=== PATIENT | male | born 1985 | race Caucasian/White ===

== ENCOUNTER 2019-03-11 14:45 | Emergency (ER) | payer OTHER, SELFPAY ==
--- NOTE | 2019-03-11 15:10 | PC.NURSE ---
Patient notified ED security that he was leaving the ED and no longer wished to be evaluated.
== END 2019-03-11 15:30 | disposition left against medical advice (07) ==
DX: Z53.21 Procedure and treatment not carried out due to patient leaving prior to being seen by health care provider (principal)
CPT/HCPCS: 99199

== ENCOUNTER 2019-03-11 17:10 | Emergency (ER) | payer OTHER, SELFPAY ==
[2019-03-11 17:23] VITALS: BP 134/89; PULSE 108; RESP 18; TEMP 37.2; O2SAT 100
[2019-03-11 18:20] LABS: Add Urine Microscopic? NO; Appearance Urine Clear (Clear); Bilirubin Urine Negative (Negative); Blood Urine Negative (Negative); Color Urine Straw (Yellow); Glucose Urine UA Negative (Negative); Ketones Urine Negative (Negative); Leukocyte Esterase Ur Negative LEU/UL (Negative); Nitrate Urine Negative (Negative); Protein Urine Negative (Negative); Specific Grav Ur 1.006 (1.001-1.035); Urobilinogen Urine Negative mg/dL (<2.0)
[2019-03-11 18:30] LABS: Amphetamine Screen Urine Negative (Negative); Barbiturate Screen Urine Negative (Negative); Benzodiazepines Screen Urine Negative (Negative); Cannabinoid Screen Urine Positive (Negative); Cocaine Screen Urine Negative (Negative); Methadone Screen Urine Negative (Negative); Opiate Screen Urine Positive (Negative); Phencyclidine Screen Urine Negative (Negative)
[2019-03-11 20:41] LABS: Basophils Absolute Auto 0.1 K/mm3 (0.0-0.1); Eosinophils Absolute Auto 0.1 K/mm3 (0-0.3); Eosinophils Percent Auto 1.1 % (0-4.4); Hematocrit 42.7 % (42.0-52.0); Hemoglobin 13.5 g/dL (14.0-18.0); Immature Granulocyte Absolute 0.03 K/mm3 (0.00-0.031); Immature Granulocyte Percent A 0.3 % (0-0.5); Lymphocytes Absolute Auto 3.92 K/mm3 (0.9-3.2); Lymphocytes Percent Auto 35.8 % (18.3-44.2); Mean Corpuscular HGB Conc 31.6 g/dl (32-36); Mean Corpuscular Hemoglobin 24.4 pg (26-34); Mean Corpuscular Volume 77.1 fl (80-100); Mean Platelet Volume 10.1 fl (7.4-10.4); Monocytes Absolute Auto 0.8 K/mm3 (0.1-0.6); Monocytes Percent Auto 7.2 % (2.6-8.5); Neutrophils Percent Auto 54.6 % (45.5-73.1); Platelet Count Result 281 k/mm3 (150-375); Red Blood Count 5.54 M/mm3 (4.6-6.20); Red Cell Distribution Width 16.1 % (11.5-14.5)
--- NOTE | 2019-03-11 20:44 | ED.ABDPAIN ---
HPI - Abdominal Pain General Chief Complaint: Abdominal Pain Stated Complaint: abdominal pain Time Seen by Provider: 03/11/19 20:12 Source: patient and RN notes reviewed Mode of arrival: ambulatory Limitations: no limitations History of Present Illness HPI narrative: Pt is a 34 y/o male with a Hx of gastric ulcers and melena, who presents to the ED with c/o bilateral lower ABD pain starting roughly 1 month ago. He notes that he has a Hx of opiate abuse, which he states may have been the cause of his previous ulcers. Pt notes that he has been sober for the past 2 months. He states that he has had relatively constant bilateral lower ABD pain and nausea for the past month. Pt notes that he hasn't eaten much recently due to his symptoms. He also reports blurry vision, muffled hearing, headache, and increasing generalized weakness over the past several days. Pt denies any diarrhea, constipation, dark stools, urinary symptoms, fever, chills, or otalgia. He notes that he has tried using marijuana in order to eat more, but states that his appetite hasn't changed. MD elicited complaint: abdominal pain Pertinent past history: gastrointestinal bleeding and other (ulcers) Onset (ago): month(s) (1) Pain Consistency: constant Location: other (bilateral lower ABD) Associated symptoms: nausea and other (blurry vision; muffled hearing; generalized weakness; headache; decreased intake) Related Data Home Medications Medication Instructions Recorded Confirmed lorazepam [Ativan] 1 mg PO DAILY PRN 03/11/19 Allergies Allergy/AdvReac Type Severity Reaction Status Date / Time No Known Allergies Allergy Unknown Verified 02/16/19 12:52 Review of Systems Review of Systems: All systems reviewed & are unremarkable except as noted in HPI and below Constitutional: Constitutional: Denies chills, Denies fever(s), Reports headache(s), Reports weakness (generalized) and Reports other (decreased intake) Eyes: Eyes: Reports blurry vision ENT: Denies otalgia and Reports other (muffled hearing) Gastrointestinal: Gastrointestinal: Reports abdominal pain (bilateral lower ABD pain), Denies melena, Denies constipation, Denies diarrhea and Reports nausea PMFSH Past Medical History Medical History Anemia Anxiety Depression Gastric ulcer Hepatitis C Melena Pneumonia Previous known suicide attempt SVT (supraventricular tachycardia) Surgical History Surgical History History of cardiac radiofrequency ablation Social History Social History Alcohol intake: current Substance use type: opiates and methamphetamine Gender identity (if verbalized by the patient): Male Exam Const: General: healthy appearing, no acute distress and alert Nutritional Appearance: well nourished Orientation/consciousness: patient oriented x3 HENMT: Other: diffuse tooth decay Eyes: Pupils: Equal, round and reactive pupils present EOM: EOMs intact bilaterally Neck: Neck: normal visual inspection Resp: Effort & Inspection: normal respiratory effort Auscultation: clear to auscultation bilaterally Cardio: Rate: regular rate Rhythm: regular rhythm GI: GI Palp: Yes Soft to palpation and Yes Tenderness to palpation present (GI) (bilateral flank tenderness) Skin: General skin exam: normal color Rashes: no rashes Neuro: General: patient oriented x3 and moves all extremities Speech: normal speech Extrem: General: normal to inspection Course Vital Signs Vital signs: Vital Signs Temperature 37.2 C 03/11/19 17:23 Pulse Rate 108 H 03/11/19 17:23 Respiratory Rate 18 03/11/19 17:23 Blood Pressure 134/89 03/11/19 17:23 Pulse Oximetry 100 03/11/19 17:23 Temperature 37.2 C 03/11/19 17:23 Pulse Rate 108 H 03/11/19 17:23 Respiratory Rate 18 03/11/19 17:23 Blood Pressure 134/89 03/11/19 17:23 Pulse
[2019-03-11 20:53] LABS: Alanine Aminotransferase 56 U/L (4-50); Albumin Level 4.4 g/dL (3.5-5.1); Alkaline Phosphatase 49 U/L (38-126); Aspartate Amino Transferase 40 U/L (17-59); Bilirubin,Total 0.9 mg/dL (0.2-1.3); Blood Urea Nitrogen 16 mg/dL (9-20); Calcium 9.1 mg/dL (8.4-10.2); Carbon Dioxide 26 mmol/L (22-30); Chloride 102 mmol/L (98-107); Estimated CRCL calculation 100 ml/min; Estimated Glomerular Filt Rate > 60; Glucose 81 mg/dL (75-110); Lipase 402 U/L (23-300); Potassium 3.8 mmol/L (3.4-5.0); Sodium 139 mmol/L (137-145)
== END 2019-03-11 23:12 | disposition home or self-care (01) ==
PROVIDERS: Emergency Medicine; Emergency Provider Emergency Medicine
DX: R10.84 Generalized abdominal pain (principal); F41.9 Anxiety disorder, unspecified; F32.9 Major depressive disorder, single episode, unspecified
CPT/HCPCS: 36415; 80053; 80307; 81003; 83690; 85025; 99283; A9270

== ENCOUNTER 2019-10-17 06:19 | Emergency (ER) | payer OTHER, SELFPAY ==
[2019-10-17 06:22] VITALS: BP 147/98; PULSE 88; RESP 18; TEMP 36.4; O2SAT 100
--- NOTE | 2019-10-17 07:05 | ED.WOUNDLAC ---
HPI - Wound/Laceration General Chief Complaint: Wound/Laceration Stated Complaint: left eye lacteration Time Seen by Provider: 10/17/19 07:05 Source: patient Mode of arrival: ambulatory Limitations: no limitations History of Present Illness HPI narrative: Patient is a 34-year-old male that presents for evaluation of left eyebrow laceration. Patient states he was at work at the [employer] this morning when he accidentally hit his head on a conveyor belt causing a laceration to the upper part of his left eyebrow. Patient reports mild active bleeding. No severe pain. No loss of consciousness. He denies any neck pain. No trauma to the chest or abdomen. Patient is up-to-date on her tetanus. Patient denies any headache or vision changes. Related Data Home Medications Medication Instructions Recorded Confirmed lorazepam [Ativan] 1 mg PO DAILY PRN 03/11/19 Allergies Allergy/AdvReac Type Severity Reaction Status Date / Time No Known Allergies Allergy Unknown Verified 10/17/19 07:22 Review of Systems Review of Systems: Narrative: CONSTITUTIONAL: Denies fever CARDIOVASCULAR: Denies chest pain RESPIRATORY: Denies cough or dyspnea. GASTROINTESTINAL: Denies abdominal pain SKIN: Denies rash MUSCULOSKELETAL: Denies back pain NEUROLOGIC: Denies headache PMFSH Past Medical History Medical History Anemia Anxiety Depression Gastric ulcer Hepatitis C Melena Pneumonia Previous known suicide attempt SVT (supraventricular tachycardia) Surgical History Surgical History History of cardiac radiofrequency ablation Social History Social History Alcohol intake: current Substance use type: opiates and methamphetamine Gender identity (if verbalized by the patient): Male Exam Narrative: Exam Narrative: GENERAL: Awake, alert, conversant HEAD: Normocephalic, atraumatic. EYES: PERRLA and EOMI. 1.5 cm laceration to the left eyelid, superficial. ENT: Nares clear, no rhinorrhea or epistaxis. Mucous membranes moist. NECK: Supple. CHEST: No respiratory distress, breathing even and non labored HEART: Regular rate, sinus rhythm ABDOMEN:Non distended, non tender EXTREMITIES: Normal range of motion. No edema. SKIN: Warm, dry, no rash. NEURO:No focal deficits. Alert and oriented x3 Course Vital Signs Vital signs: Vital Signs Temperature 36.4 C L 10/17/19 06:22 Pulse Rate 88 10/17/19 06:22 Respiratory Rate 18 10/17/19 06:22 Blood Pressure 147/98 H 10/17/19 06:22 Pulse Oximetry 100 10/17/19 06:22 Temperature 36.4 C L 10/17/19 06:22 Pulse Rate 88 10/17/19 06:22 Respiratory Rate 18 10/17/19 06:22 Blood Pressure 147/98 H 10/17/19 06:22 Pulse Oximetry 100 10/17/19 06:22 Procedures Laceration Laceration 1: Date: 10/17/19 Time: 07:45 Site: face Side (If applicable): left Size (cm): 1.5 Description: linear Depth: simple, single layer Local Anesthetic: lidocaine 1% Amount of anesthesia used (mL): 2 Pre-repair: wound explored and irrigated ====== Skin Level ====== Skin layer closed with: prolene Size (cm): 6-0 Number of sutures: 2 Technique: simple, interrupted ====== Subcutaneous Layer ====== ====== Muscle Layer ====== ====== Tendon Layer ====== MDM - Wound/Laceration MDM Narrative Medical decision making narrative: Patient with left eyebrow superficial laceration which was irrigated and repaired. No other deficits. Patient is up-to-date on his tetanus. No loss of consciousness or sign of severe head trauma. No concussion type symptoms on exam. Advised patient could continue Tylenol for headache pain if he were to develop any. Given wound care instructions. Patient then discharged home. Differential
== END 2019-10-17 08:11 | disposition home or self-care (01) ==
PROVIDERS: Emergency Provider Emergency Medicine
DX: S01.112A Laceration without foreign body of left eyelid and periocular area, initial encounter (principal); F41.9 Anxiety disorder, unspecified; F32.9 Major depressive disorder, single episode, unspecified; Z86.19 Personal history of other infectious and parasitic diseases; W22.8XXA Striking against or struck by other objects, initial encounter
CPT/HCPCS: 12011; 99282

== ENCOUNTER 2019-12-19 17:03 | Emergency (ER) | payer OTHER, SELFPAY ==
--- NOTE | 2019-12-19 17:31 | PC.NURSE ---
pt again informed that visitor had to wait outside. pt states to take him out of the list to be seen states will walk home with his gf.
== END 2019-12-19 17:31 | disposition left against medical advice (07) ==
LOC: ANHED 17:43
PROVIDERS: PCP Family Medicine
DX: Z53.21 Procedure and treatment not carried out due to patient leaving prior to being seen by health care provider (principal)
CPT/HCPCS: 99199

== ENCOUNTER 2019-12-19 18:32 | Emergency (ER) | payer OTHER, SELFPAY ==
[2019-12-19 18:44] VITALS: BP 126/77; PULSE 96; RESP 16; TEMP 37.2; O2SAT 99
--- NOTE | 2019-12-19 18:53 | ED.WOUNDLAC ---
HPI - Wound/Laceration General Chief Complaint: Wound/Laceration Stated Complaint: laceration left arm Source: patient and RN notes reviewed Mode of arrival: ambulatory Limitations: no limitations History of Present Illness HPI narrative: This is a 34-year-old white male that presented to our urgent care today with a 7 mm laceration. The patient he was rehabbing his new home in him his brother was doing pull-ups and while doing pull-ups he injured his left arm on an object. Patient is up-to-date with his tetanus. The patient denies SOB, CP, palpitation, extremity numbness, lightheadedness, dizziness, constipation, diarrhea, chills, or fever. Has full range of motion with the affected extremity to that extremity, no tendons or ligaments or muscles noted. Related Data Home Medications Medication Instructions Recorded Confirmed diclofenac sodium 75 mg PO DAILY 12/19/19 12/19/19 Allergies Allergy/AdvReac Type Severity Reaction Status Date / Time No Known Allergies Allergy Unknown Verified 10/17/19 07:22 Review of Systems Review of Systems: All systems reviewed & are unremarkable except as noted in HPI and below (10 system review) [facility] Past Medical History Medical History (Updated 12/19/19 @ 18:53 by SHAHNAZ FlowerC) Anemia Anxiety Depression Gastric ulcer Hepatitis C Melena Pneumonia Previous known suicide attempt SVT (supraventricular tachycardia) Surgical History Surgical History History of cardiac radiofrequency ablation Social History Social History Alcohol intake: current Substance use type: opiates and methamphetamine Gender identity (if verbalized by the patient): Male Course Vital Signs Vital signs: Vital Signs Temperature 99.0 F 12/19/19 18:44 Pulse Rate 96 12/19/19 18:44 Respiratory Rate 16 12/19/19 18:44 Blood Pressure 126/77 12/19/19 18:44 Pulse Oximetry 99 12/19/19 18:44 Temperature 99.0 F 12/19/19 18:44 Pulse Rate 96 12/19/19 18:44 Respiratory Rate 16 12/19/19 18:44 Blood Pressure 126/77 12/19/19 18:44 Pulse Oximetry 99 12/19/19 18:44 Discharge Plan Discharge Clinical Impression: Laceration Patient Disposition: Home, Self-Care Condition: Stable Instructions: Antibiotic Form Additional Instructions: -Keep the dressing clean and dry for 1-2days; then you may gently clean with soap and water whenever you take a shower; however no continuous water contact like dishes or swimming. Getting them too wet can slow down healing and raise your chance of getting an infection. After you wash your stitches or michael, pat them dry and put an antibiotic ointment on them. -watch for signs of infection including: redness or swelling around the cut, or pus drains from the cut. It is normal for clear yellow fluid to drain from the cut in the first few days. -follow up with PCP for suture/staple in removal 10 days Skin adhesive care: -adhesive works like a bandage; do not use antibiotic onitment as it can break down the adhesive -You can shower while the adhesive is on your skin, but do not take a bath or soak or scrub the area for 7-10 days. Dry your skin by patting it gently with a towel. -The adhesive will peel off on its own; usually by 5-10days. If after 10 days, you still have adhesive on you, you can use antibiotic ointment or petroleum jelly to get it off. After you heal, you should protect the scar from the sun. Use sunscreen on the area or wear clothes or a hat that covers the scar. Follow up with your PCP is needed Prescriptions: No Action diclofenac sodium 75 mg tablet,delayed release (DR/EC) 75 mg PO DAILY RF: 0 Follow-up/Referrals: Louie Bah MD [Primary Care Provider] -
== END 2019-12-19 19:44 | disposition home or self-care (01) ==
PROVIDERS: Emergency Provider Nurse Practitioner; PCP Family Medicine
DX: S51.812A Laceration without foreign body of left forearm, initial encounter (principal); X58.XXXA Exposure to other specified factors, initial encounter
CPT/HCPCS: 12004; 99212; G0463

== ENCOUNTER 2021-03-08 12:17 | Outpatient (CLI) | payer OTHER, SELFPAY ==
[2021-03-08 13:07] LABS: Basophils Absolute Auto 0.1 K/mm3 (0.0-0.1); Basophils Percent Auto 1.3 % (0.2-1.2); Eosinophils Absolute Auto 0.2 K/mm3 (0-0.3); Eosinophils Percent Auto 2.7 % (0-4.4); Hematocrit 46.2 % (42.0-52.0); Hemoglobin 14.7 g/dL (14.0-18.0); Immature Granulocyte Absolute 0.02 K/mm3 (0.00-0.031); Immature Granulocyte Percent A 0.3 % (0-0.5); Lymphocytes Absolute Auto 2.15 K/mm3 (0.9-3.2); Lymphocytes Percent Auto 30.4 % (18.3-44.2); Mean Corpuscular HGB Conc 31.8 g/dl (32-36); Mean Corpuscular Hemoglobin 25.4 pg (26-34); Mean Corpuscular Volume 79.9 fl (80-100); Mean Platelet Volume 9.8 fl (7.4-10.4); Monocytes Absolute Auto 0.8 K/mm3 (0.1-0.6); Monocytes Percent Auto 11.7 % (2.6-8.5); Neutrophils Absolute Auto 3.8 K/mm3 (1.3-6.7); Neutrophils Percent Auto 53.6 % (45.5-73.1); Platelet Count Result 244 k/mm3 (150-375); Red Blood Count 5.78 M/mm3 (4.6-6.20); White Blood Count 7.1 K/mm3 (4.5-10.0)
[2021-03-08 13:20] LABS: Alanine Aminotransferase 78 U/L (4-50); Alkaline Phosphatase 43 U/L (38-126); Anion Gap 6 mmol/L (8-16); Aspartate Amino Transferase 43 U/L (17-59); Bilirubin,Total 0.6 mg/dL (0.2-1.3); Blood Urea Nitrogen 19 mg/dL (9-20); CRP < 0.5 mg/dL (<1.0); Calcium 9.7 mg/dL (8.4-10.2); Carbon Dioxide 23 mmol/L (22-30); Chloride 108 mmol/L (98-107); Cholesterol 194 mg/dL (0-200); Estimated Glomerular Filt Rate > 60; Glucose 99 mg/dL (65-110); HDL Direct 90 mg/dL; Lipase 223 U/L (23-300); Potassium 4.6 mmol/L (3.4-5.0); Sodium 137 mmol/L (137-145); Triglycerides 41 mg/dL (<150)
[2021-03-08 13:30] LABS: LDL Cholesterol Direct 67 mg/dL
[2021-03-08 13:52] LABS: Hepatitis B Surface Antigen Negative (Negative)
[2021-03-08 14:14] LABS: Hepatitis C Virus Antibody Reactive (Negative)
== END 2021-03-08 12:18 | disposition home or self-care (01) ==
PROVIDERS: PCP Internal Medicine; Visit Provider Internal Medicine
DX: R10.9 Unspecified abdominal pain (principal); F11.99 Opioid use, unspecified with unspecified opioid-induced disorder
CPT/HCPCS: 36415; 80053; 80061; 83690; 85025; 86140; 86803; 87340; 87522

== ENCOUNTER 2021-03-12 10:03 | Outpatient (CLI) | payer OTHER, SELFPAY ==
--- NOTE | ~2021-03-12 | US_ITS ---
EXAMINATION: US right upper quadrant DATE: 03/12/2021 10:27 INDICATION: Right abdominal pain. TECHNIQUE: Multiple grayscale and Doppler ultrasound images of the abdomen were obtained. COMPARISON: CT abdomen and pelvis 10/28/2015 FINDINGS: The pancreas is obscured by bowel gas. The liver is normal without focal lesion. There is n ormal flow in main portal vein. The gallbladder is normal in size. No gallstones or gallbladder wall thickening. There was no sonographic Small sign. The common duct is normal and measures 3 mm. IMPRESSION: 1. Normal right upper quadrant ultrasound. Reviewed, dictated and finalized at location E. APPLICATION DEVELOPER
== END 2021-03-12 10:04 | disposition home or self-care (01) ==
PROVIDERS: PCP Internal Medicine; Visit Provider Internal Medicine
DX: R10.11 Right upper quadrant pain (principal)
CPT/HCPCS: 76705

== ENCOUNTER 2021-03-13 15:52 | Emergency (ER) | payer OTHER, SELFPAY ==
--- NOTE | ~2021-03-13 | US_ITS ---
EXAMINATION: US scrotum doppler EXAM DATE: 03/13/2021 17:20 INDICATION: Left testicular pain. TECHNIQUE: Multiple grayscale and Doppler images of the testicles and scrotum were obtained bilateral ly. There is no prior study for comparison. FINDINGS: Right testicle measures 4.7 x 2.3 x 3.4 cm and is morphologically normal. Low resistance Doppler kari w confirmed. The epididymis is unremarkable. Small to moderate-sized varicocele. Left testicle measures 4.5 x 2.7 x 3.3 cm and is morphologically normal. Low resistance Doppler flow confirmed. The epididymis is unremarkable. Small to moderate-sized varicocele. IMPRESSION: 1. Small to moderate-sized bilateral varicoceles. 2. No torsion. Reviewed, dictated and finalized at location G. OT HARVESTER
[2021-03-13 16:12] VITALS: BP 168/89; PULSE 110; RESP 18; TEMP 36.8; O2SAT 100
[2021-03-13 16:53] LABS: Add Urine Microscopic? NO; Appearance Urine Clear (Clear); Bilirubin Urine Negative (Negative); Blood Urine Negative (Negative); Color Urine Colorless (Yellow); Glucose Urine UA Negative (Negative); Ketones Urine Negative (Negative); Leukocyte Esterase Ur Negative LEU/UL (Negative); Nitrate Urine Negative (Negative); Protein Urine Negative (Negative); Urobilinogen Urine Negative mg/dL (<2.0)
[2021-03-13 16:54] LABS: Specific Grav Ur 1.003 (1.001-1.035)
--- NOTE | 2021-03-13 17:57 | ED.MALEGU ---
HPI - Male Genitourinary General Chief complaint: Urogenital-Male Stated complaint: testicular pain Time Seen by Provider: 03/13/21 16:19 Source: patient History of Present Illness HPI Narrative: Patient presents with left testicular pain. Patient ports he had pain for approximately 1 week. His pain was initially intermittent however today it became more severe and associated with nausea he was concerned so he came to the ER for evaluation he denies any trauma to the area the pain is achy, constant, radiates up into his abdomen. Denies any urinary symptoms denies any urethral discharge. Related Data Home Medications Medication Instructions Recorded Confirmed naltrexone microspheres [Vivitrol] 380 mg IM ONCE 03/13/21 03/13/21 Allergies Allergy/AdvReac Type Severity Reaction Status Date / Time No Known Allergies Allergy Unknown Verified 03/13/21 16:10 Review of Systems Review of Systems: CONSTITUTIONAL: Denies fever, chills, or sweats. EYES: Denies visual changes, redness, or discharge. ENT: Denies rhinorrhea, congestion, sore throat, or otalgia. CARDIOVASCULAR: Denies chest pain, palpitations, or edema. RESPIRATORY: Denies cough or dyspnea. GASTROINTESTINAL: Denies nausea, vomiting, or diarrhea. GENITOURINARY: Denies dysuria or hematuria. SKIN: Denies rash or itching. MUSCULOSKELETAL: Denies back pain, joint pain, or myalgia. NEUROLOGIC: Denies headache, numbness, dizziness, or weakness. PSYCHIATRIC: Denies anxiety or depression. All systems reviewed & are unremarkable except as noted in HPI and below PMFSH Past Medical History Medical History (Updated 03/13/21 @ 18:03 by Delbert Rucker MD) Anemia Anxiety Depression Gastric ulcer Hepatitis C Melena Pneumonia Previous known suicide attempt SVT (supraventricular tachycardia) Surgical History Surgical History History of cardiac radiofrequency ablation Social History Social History Alcohol intake: current Substance use type: opiates and methamphetamine Gender identity (if verbalized by the patient): Male Exam Narrative: GENERAL: Well-appearing, well-nourished, and in no acute distress. HEAD: Normocephalic, atraumatic. EYES: PERRLA and EOMI. ENT: Nares clear, no rhinorrhea or epistaxis. Mucous membranes moist. NECK: Supple. No masses. No JVD ABDOMEN: Soft, nontender, nondistended, normal active bowel sounds. : Patient with tenderness to palpation along the spermatic cord and epididymis there is normal lie of the testicle there is no edema or swelling cremasteric is intact. There is no urethral discharge there is no ulcerations or rashes. EXTREMITIES: Normal range of motion. No edema. SKIN: Warm, dry, no rash. NEURO: No focal deficits. Alert and oriented x3. PSYCH: Normal mood and affect. Course Reevaluation(s) Reevaluation #1: Patient is resting comfortably results and plan reviewed with patient. Patient is comfortable with the outpatient plan. Date: 03/13/21 Time: 18:00 Vital Signs Vital signs: Vital Signs Temperature 36.8 C 03/13/21 16:12 Pulse Rate 110 H 03/13/21 16:12 Respiratory Rate 18 03/13/21 16:12 Blood Pressure 168/89 H 03/13/21 16:12 Pulse Oximetry 100 03/13/21 16:12 Temperature 36.8 C 03/13/21 16:12 Pulse Rate 84 03/13/21 18:08 Respiratory Rate 16 03/13/21 18:08 Blood Pressure 136/84 03/13/21 18:08 Pulse Oximetry 98 03/13/21 18:08 MDM - Male Genitourinary MDM Narrative Medical decision making narrative: H&P as above, vss, pt looks clinically well, exam with testicular pain, labs unremarkable, img with varicocele, additional labs/img considered, symptomatic relief available as needed, however patient declined supportive therapies while he was in the ER. On reevaluation pt continues to looks clinically well. Suspect varicocele is causing patient's pain, dns torsion, orchitis, ep
[2021-03-13 18:08] VITALS: BP 136/84; PULSE 84; RESP 16; O2SAT 98
== END 2021-03-13 18:10 | disposition home or self-care (01) ==
PROVIDERS: Emergency Provider Emergency Medicine; PCP Internal Medicine
DX: I86.1 Scrotal varices (principal); Z86.2 Personal history of diseases of the blood and blood-forming organs and certain disorders involving the immune mechanism; Z87.01 Personal history of pneumonia (recurrent); Z86.19 Personal history of other infectious and parasitic diseases
CPT/HCPCS: 76870; 81003; 87491; 87591; 93976; 99284

== ENCOUNTER 2021-08-10 02:09 | Day surgery (SDC) | payer OTHER, SELFPAY ==
[2021-08-10 11:57] VITALS: BP 114/74; PULSE 76; RESP 16; TEMP 36.5; O2SAT 100; BMI 30.3
[2021-08-10] MEDS: LACTATED RINGERS 1,000 ML 150 ML IV CONT (12:16)
--- NOTE | 2021-08-10 12:36 | P.PNAN_ITS ---
Anes - Initial Pre Proc Eval Procedure: Operation Date: 08/10/21 12:30 Proposed Procedures p Esophagogastroduodenoscopy - Paulino Henry MD Date/Time: 08/10/21 12:36 Surgeon: Paulino Henry MD Pre Op Diagnosis: epigastric pain Patient Data Age: 36 Gender: M Height: 1.78 m Weight: 95.8 kg Last Vital Signs Temp 97.7 F 08/10/21 11:57 Pulse 76 08/10/21 11:57 Resp 16 08/10/21 11:57 BP 114/74 08/10/21 11:57 Pulse Ox 100 08/10/21 11:57 O2 Del Method Room Air 08/10/21 11:57 Allergies Allergy/AdvReac Type Severity Reaction Status Date / Time No Known Allergies Allergy Unknown Verified 08/10/21 11:56 Home Medications Medication Instructions Recorded Confirmed Type naltrexone microspheres 380 mg 380 mg IM ONCE 03/13/21 08/10/21 History intramuscular suspension,extended release (Vivitrol) Patient hx anesthesia problems: none Family hx anesthesia problems: none Results Review: All pre-operative results and documents have been reviewed as part of the pre- operative evaluation. PENDING SALE TO [facility] Past Medical History Medical History (Updated 06/03/21 @ 10:09 by Paulino Henry MD) Anemia Anxiety Depression Epigastric pain Gastric ulcer Hepatitis C History of heroin abuse Melena Pneumonia Previous known suicide attempt SVT (supraventricular tachycardia) Surgical History Surgical History History of cardiac radiofrequency ablation Social History Social History (Updated 06/03/21 @ 09:37 by Sally Leung CMA) Smoking status: Never smoker Alcohol intake: current Drinks per week: 18 Alcohol use details: BEERS Substance use: former Substance use type: marijuana and heroin Other substance usage details: MARIJUANA DAILY Last use: 1yr since opiates and methamphetamine Gender identity (if verbalized by the patient): Male Spiritual care concerns: No Anes - Eval Final PreProcedure Day of Procedure 08/10/21 12:36 Patient weight: obese Heart: regular rate and rhythm Lungs: clear to auscultation Airway: Mallampati scale class II Neurological: alert and oriented Last oral intake: >/= 8 hours ASA classification: III Emergent: no Anesthetic plan: proceed Anesthesia type and monitoring: general GIVS and standard monitoring Results Review: All pre-operative results and documents have been reviewed as part of the pre- operative evaluation. Informed Consent: The patient's anesthetic plan and its attendant risks and benefits were discussed with the patient/family/POA. Questions were solicited and answers p rovided to the satisfaction of the patient/family/POA.
--- NOTE | 2021-08-10 13:12 | PM.HPGS ---
History of Present Illness History of Present Illness Consent: Risks, benefits, and alternatives have been discussed and questions answered. Patient agrees to proceed with procedure. Chief complaint: epigastric pain Narrative: Perry Navas is a 36 year old male here for EGD. He is former heroin addict on maintenance vivitrol, denies alcohol use. Earlier this year diagnosed with HCV, never had liver issues, had alt elevated. Normal platelets and liver ultrasound. He also had ugib in 2017, required blood transfusion and was told that had ulcer, he did not have follow-up EGD Review of Systems Constitutional: Constitutional: Denies headache(s) and Denies weakness Eyes: Eyes: Denies blurry vision ENT: Reports Normal hearing present, Denies headache(s) and Denies neck pain Cardiovascular: Cardiovascular: Denies chest pain and Denies dyspnea Respiratory: Respiratory: Denies dyspnea Gastrointestinal: Gastrointestinal: Reports no additional gastrointestinal complaints Genitourinary: Genitourinary: Denies dysuria Musculoskeletal: Musculoskeletal: Denies neck pain Integumentary/Breasts: Skin/Breast: Denies dry skin Neurologic: Reports Normal hearing present, Denies headache(s) and Denies weakness Psychiatric: Psychiatric: Denies anxiety Endocrine: Endocrine: Denies change in body appearance Hematologic/Lymphatic: Hematologic/Lymphatic: Denies easy bleeding Allergic/Immunologic: Allergic/Immunologic: Denies urticaria PMFSH Past Medical History Medical History (Updated 06/03/21 @ 10:09 by Paulino Henry MD) Anemia Anxiety Depression Epigastric pain Gastric ulcer Hepatitis C History of heroin abuse Melena Pneumonia Previous known suicide attempt SVT (supraventricular tachycardia) Surgical History Surgical History History of cardiac radiofrequency ablation Social History Social History (Updated 06/03/21 @ 09:37 by Sally Leung CMA) Smoking status: Never smoker Alcohol intake: current Drinks per week: 18 Alcohol use details: BEERS Substance use: former Substance use type: marijuana and heroin Other substance usage details: MARIJUANA DAILY Last use: 1yr since opiates and methamphetamine Gender identity (if verbalized by the patient): Male Spiritual care concerns: No Meds Home Medications and Allergies Home Medications Medication Instructions Recorded Confirmed Type naltrexone microspheres 380 mg 380 mg IM ONCE 03/13/21 08/10/21 History intramuscular suspension,extended release (Vivitrol) Allergies Allergy/AdvReac Type Severity Reaction Status Date / Time No Known Allergies Allergy Unknown Verified 08/10/21 11:56 Vital Signs Vital Signs - 24 hr 08/10/21 11:57 Temperature 97.7 F Pulse Rate 76 Respiratory Rate 16 Blood Pressure 114/74 Pulse Oximetry 100 Oxygen Delivery Room Air Exam Const: General: comfortable and no acute distress HENMT: General nose exam: Normal nares present Eyes: General: appearance normal, both eyes and all related structures Neck: Neck: no JVD Resp: Auscultation: clear to auscultation bilaterally Cardio: Rate: regular rate Rhythm: regular rhythm GI: Inspection: non-distended GI Palp: Yes Soft to palpation Skin: General skin exam: normal color Neuro: General: gait normal Speech: normal speech Extrem: General: normal to inspection Psych: Mental Status: mental status grossly normal Assessment and Plan Assessment and plan (1) Epigastric pain: Code(s): R10.13 - Epigastric pain Status: Acute Assessment and Plan: egd with bx (2) Hepatitis C: Code(s): B19.20 - Unspecified viral hepatitis C without hepatic coma Status: Acute Assessment and Plan: he just completed blood work (still pending) and will follow-up in office to discuss options of treatment for HCV
[2021-08-10 13:25] VITALS: BP 103/69; PULSE 79; RESP 21; O2SAT 97
[2021-08-10 13:35] VITALS: BP 109/65; PULSE 69; RESP 22; O2SAT 98
[2021-08-10 13:45] VITALS: BP 110/73; PULSE 66; RESP 16; O2SAT 99
== END 2021-08-10 13:55 | disposition home or self-care (01) ==
PROVIDERS: PCP Internal Medicine; Visit Provider Internal Medicine Gastroenterology
PROC: 0DJ08ZZ Inspection of Upper Intestinal Tract, Via Natural or Artificial Opening Endoscopic (ICD-10-PCS; CPT 43235; principal; 2021-08-10 12:30)
DX: R10.13 Epigastric pain (principal); K29.80 Duodenitis without bleeding; K29.50 Unspecified chronic gastritis without bleeding; R41.9 Unspecified symptoms and signs involving cognitive functions and awareness; D64.9 Anemia, unspecified; F32.A Depression, unspecified; B19.20 Unspecified viral hepatitis C without hepatic coma; I47.1 Supraventricular tachycardia; K92.1 Melena; F12.90 Cannabis use, unspecified, uncomplicated; E66.9 Obesity, unspecified; Z68.30 Body mass index [BMI] 30.0-30.9, adult
CPT/HCPCS: 43239; 36415; 80053; 81596; 85027; 85610; 86704; 86706; 87340; 87522; 88305; J2704; J7120

== ENCOUNTER 2021-08-10 11:31 | Outpatient (CLI) | payer OTHER, SELFPAY ==
[2021-08-10 12:30] LABS: Hematocrit 46.4 % (42.0-52.0); Hemoglobin 14.7 g/dL (14.0-18.0); Mean Corpuscular HGB Conc 31.7 g/dl (32-36); Mean Corpuscular Hemoglobin 25.3 pg (26-34); Mean Corpuscular Volume 79.9 fl (80-100); Mean Platelet Volume 9.8 fl (7.4-10.4); Platelet Count Result 246 k/mm3 (150-375); Red Blood Count 5.81 M/mm3 (4.6-6.20); Red Cell Distribution Width 15.7 % (11.5-14.5); White Blood Count 8.6 K/mm3 (4.5-10.0)
[2021-08-10 12:31] LABS: Alanine Aminotransferase 157 U/L (6-50); Albumin Level 4.5 g/dL (3.5-5.1); Alkaline Phosphatase 47 U/L (38-126); Anion Gap 5 mmol/L (8-16); Aspartate Amino Transferase 74 U/L (17-59); Bilirubin,Total 0.7 mg/dL (0.2-1.3); Blood Urea Nitrogen 22 mg/dL (9-20); Calcium 8.7 mg/dL (8.4-10.2); Carbon Dioxide 26 mmol/L (22-30); Chloride 106 mmol/L (98-107); Estimated Glomerular Filt Rate > 60; Glucose 91 mg/dL (65-110); INR 0.9; Potassium 4.4 mmol/L (3.4-5.0); Prothrombin Time 12.1 Seconds (11.1-14.7); Sodium 137 mmol/L (137-145)
[2021-08-10 13:12] LABS: Hepatitis B Surface Antigen Negative (Negative)
[2021-08-10 13:30] LABS: Hepatitis B Surface Anti Res Positive
[2021-08-13 07:05] LABS: Hepatitis B Core Ab Total Nonreactive (Nonreactive)
[2021-08-13 17:27] LABS: ALT 117 U/L (9-46); Alpha-2-Macroglobulin 155 mg/dL (106-279); Apolipoprotein A1 193 mg/dL (94-176); Fibrosis Stage F0; GGT 49 U/L (3-90); Haptoglobin 108 mg/dL (43-212); Necroinflammat Act Grade A2; Total Bilirubin 0.7 mg/dL (0.2-1.2)
[2021-08-15 13:00] LABS: HCV Genotype, LiPA 3
== END 2021-08-10 11:32 | disposition home or self-care (01) ==
PROVIDERS: PCP Internal Medicine; Visit Provider Internal Medicine Gastroenterology
DX: B19.20 Unspecified viral hepatitis C without hepatic coma (principal)
CPT/HCPCS: 36415; 80053; 81596; 85027; 85610; 86704; 86706; 87340; 87522

== ENCOUNTER 2022-03-21 11:44 | Emergency (ER) | payer OTHER, SELFPAY ==
--- NOTE | ~2022-03-21 | XR_ITS ---
Clinical Indication: Shortness of breath PA and lateral views of the chest: Comparison: 05/26/2018 Findings: The lungs are clear, without evidence of focal consolidation or pleural effusion. Cardiome diastinal silhouette is within normal limits. Bones and soft tissues are unremarkable. Impression: Normal chest. Reviewed, dictated and finalized at [facility]. ELLER INSPECTOR Impression: Normal chest.
[2022-03-21 11:54] VITALS: BP 137/86; PULSE 102; RESP 16; TEMP 37.1; O2SAT 99
[2022-03-21 11:56] VITALS: BP 137/86; PULSE 102; RESP 16; TEMP 37.1; O2SAT 99
--- NOTE | 2022-03-21 11:59 | ECG_ITS ---
Measurements Intervals [place] Rate: 95 P: 52 [place]: 131 QRS: 17 QRSD: 92 T: -4 QT: 342 QTc: 430 Interpretive Statements SINUS RHYTHM POSSIBLE LEFT ATRIAL ENLARGEMENT [-0.1mV P WAVE IN V1/V2] COMPARED TO ECG 05/26/2018 14:43:44 SINUS RHYTHM NOW PRESENT Electronically Signed On 03-22-2022 11:15:32 BRICK [employer]ENE[employer]KER by Deb Harris M.D.
--- NOTE | 2022-03-21 12:01 | ED.GENADULT ---
HPI - General Adult General Chief complaint: Upper Respiratory Infection Stated complaint: Cough Time Seen by Provider: 03/21/22 12:00 Source: patient, RN notes reviewed and old records reviewed Mode of arrival: ambulatory Limitations: no limitations History of Present Illness HPI narrative: 37-year-old male presents to the [facility] with intermittent right-sided chest pain that radiates into his back for the last 3-4 days. Denies any fevers. States he has been fatigued and has had chills. Concern for COVID Related Data Home Medications Medication Instructions Recorded Confirmed naltrexone microspheres 380 mg 380 mg IM ONCE 03/13/21 03/21/22 intramuscular suspension,extended release (Vivitrol) Allergies Allergy/AdvReac Type Severity Reaction Status Date / Time No Known Allergies Allergy Unknown Verified 03/21/22 11:55 Review of Systems Review of Systems: All systems reviewed & are unremarkable except as noted in HPI and below Constitutional: Constitutional: Reports no additional constitutional complaints Eyes: Eyes: Reports no additional eye complaints ENT: Reports system reviewed and no additional complaints, except as documented Cardiovascular: Cardiovascular: Reports no additional cardiovascular complaints, Denies chest pain and Denies dyspnea Respiratory: Respiratory: Reports as per HPI, Denies chest congestion, Reports cough, Denies dyspnea and Denies wheezing Gastrointestinal: Gastrointestinal: Reports no additional gastrointestinal complaints, Denies abdominal pain, Denies nausea and Denies vomiting Musculoskeletal: Musculoskeletal: Reports no additional musculoskeletal complaints Integumentary/Breasts: Skin/Breast: Reports system reviewed and no additional complaints, except as docu Neurologic: Reports system reviewed and no additional complaints, except as documented Psychiatric: Psychiatric: Reports no additional psychiatric complaints Allergic/Immunologic: Allergic/Immunologic: Reports no additional allergic/immunologic complaints [facility] Past Medical History Medical History Anemia Anxiety Depression Epigastric pain Gastric ulcer Hepatitis C History of heroin abuse Melena Pneumonia Previous known suicide attempt SVT (supraventricular tachycardia) Surgical History Surgical History History of cardiac radiofrequency ablation Social History Social History Smoking status: Never smoker Alcohol intake: current Drinks per week: 18 Alcohol use details: BEERS Substance use: former Substance use type: marijuana and heroin Other substance usage details: MARIJUANA DAILY Last use: 1yr since opiates and methamphetamine Living arrangements: with family Gender identity (if verbalized by the patient): Male Spiritual care concerns: No Comments At the time of my signature, I reviewed and agree with the nursing past medical, surgical, social, and family history. There is no relevant family history pertinent to the patient complaint. Exam Const: General: cooperative, healthy appearing, comfortable, no acute distress, well developed, alert and well nourished Nutritional Appearance: well nourished Orientation/consciousness: patient oriented x3 Limitations: no limitations HENMT: Head: normal to inspection Ears: hearing grossly normal bilaterally and external ears normal Face/Nose/Sinus: Normal external nose present, Normal nares present, Normal nasal mucous membranes and turbinates present and normal facial exam Face and sinus: normal facial exam Mouth: Yes Normal oral and palatal mucosa present, Yes lip normal and Yes moist mucous membranes Throat: posterior oropharynx normal and uvula midline Eyes: General: appearance normal, both eyes and all related structures Alignment and Position: alignment normal Per
== END 2022-03-21 12:40 | disposition home or self-care (01) ==
PROVIDERS: Emergency Provider Nurse Practitioner
DX: J40 Bronchitis, not specified as acute or chronic (principal); Z20.822 Contact with and (suspected) exposure to COVID-19
CPT/HCPCS: 71046; 87426; 87804; 93005; 99213; C9803; G0463

== ENCOUNTER 2022-04-12 08:20 | Emergency (ER) | payer OTHER, SELFPAY ==
--- NOTE | ~2022-04-12 | XR_ITS ---
XR chest 2V DATE: 04/12/2022 09:36 INDICATION: Shortness of breath TECHNIQUE: PA and lateral views COMPARISON: March 21, 2022 PA and lateral chest FINDINGS: Normal heart size. No hilar or mediastinal enlargement. The lungs are normally inflated and clear of infiltrate or consolidation. No pleural effusion or pulmonary congestion or pneumothorax. I ncluded skeletal structures are unremarkable other than minimal dextroscoliosis of the thoracic spine . IMPRESSION: No active cardiopulmonary disease Reviewed, dictated and finalized at location L. PING AND RECEIVING COORDINATOR
--- NOTE | ~2022-04-12 | CT_ITS ---
EXAMINATION: CTA chest PE abdomen pel DATE: 04/12/2022 10:13 INDICATION: Shortness of breath, elevated d-dimer and epigastric pain. TECHNIQUE: Computed tomography (CT) pulmonary angiogram of the chest was performed with 100 mL Omnipa que-350 intravenous contrast. Additional 3D reconstructions utilizing coronal maximum intensity proje ction (MIP) were performed. CT of the abdomen and pelvis was performed with intravenous contrast util izing the same contrast bolus following a short delay. Automated exposure control and iterative recon struction technique were employed. The dose-length product was 1079.26 mGy-cm. COMPARISON: None FINDINGS: Chest: Good contrast opacification of the pulmonary arteries. There is mild streak artifact from dense contr ast in the superior vena cava and right atrium. Mild scattered respiratory motion artifact which does not significantly limit evaluation. No pulmonary embolism. Minimal dependent atelectasis in the righ t lower lobe. No pneumonia, pulmonary edema, pleural effusion or pneumothorax. Heart size is normal. No pericardial effusion. No pathologically enlarged thoracic lymphadenopathy. Small sliding-type hiat al hernia. Mild thoracic spondylosis. Abdomen/pelvis: Liver, gallbladder, spleen, pancreas, bilateral adrenal glands and kidneys are normal. Bowels includi ng the appendix are normal. Small fat-containing umbilical hernia. Bladder is normal. Trace amount of ascites in the deep pelvis. No abscess or free intraperitoneal gas. No pathologically enlarged abdom inal or pelvic lymphadenopathy. Minimal scattered degenerative skeletal changes. IMPRESSION: 1. No pulmonary embolism or other acute cardiopulmonary disease. 2. Small sliding-type hiatal hernia. 3. Nonspecific trace amount of ascites in the deep pelvis. No acute intra-abdominal/pelvic process. 4. Small fat-containing umbilical hernia. Reviewed, dictated and finalized at location A. RISK ADVISOR IMPRESSION: 1. No pulmonary embolism or other acute cardiopulmonary disease. 2. Small sliding-type hiatal hernia. 3. Nonspecific trace amount of ascites in the deep pelvis. No acute intra-abdom inal/pelvic process. 4. Small fat-containing umbilical hernia.
[2022-04-12 08:23] VITALS: BP 160/86; PULSE 108; RESP 16; TEMP 37; O2SAT 100
[2022-04-12 08:54] LABS: Appearance Urine Cloudy (Clear); Bacteria Urine None Seen /hpf; Bilirubin Urine Negative (Negative); Blood Urine Negative (Negative); Color Urine Yellow (Yellow); Glucose Urine UA Negative (Negative); Ketones Urine Negative (Negative); Leukocyte Esterase Ur Negative LEU/UL (Negative); Nitrate Urine Negative (Negative); Non Pathogenic Casts 0-2; Protein Urine Negative (Negative); RBC Urine 0-2 /hpf (0-2); Specific Grav Ur 1.005 (1.001-1.035); Squamous Epithelial Cell Urine None seen /hpf (Few); Urobilinogen Urine 0.2 mg/dL (<2.0); WBC Urine 0-5 /hpf; pH Urine 6.5 (5.0-9.0)
[2022-04-12 08:56] LABS: Add Urine Microscopic? YES
--- NOTE | 2022-04-12 09:06 | ECG_ITS ---
Measurements Intervals [place] Rate: 96 P: 46 DC: 134 QRS: 4 QRSD: 92 T: -16 QT: 350 QTc: 444 Interpretive Statements SINUS RHYTHM VOLTAGE CRITERIA FOR LVH NONSPECIFIC T-WAVE ABNORMALITY- ANT/INF LEADS BASELINE ARTIFACT- III BORDERLINE ECG COMPARED TO ECG 03/21/2022 12:07:58 NO SIGNIFICANT CHANGES Electronically Signed On 04-12-2022 13:11:30 SHIFT NURSE MANAGER by [place] D.O.
--- NOTE | 2022-04-12 09:20 | ED.ABDPAIN ---
HPI - Abdominal Pain General Chief Complaint: Abdominal Pain Stated Complaint: abdominal pain x 1 month Time Seen by Provider: 04/12/22 09:04 Source: patient Mode of arrival: ambulatory Limitations: no limitations History of Present Illness HPI narrative: This is a 37-year-old male that presents to the emergency department for epigastric pain ongoing over the last month. Associated with nausea. Reports the pain is sharp in nature and burning. He did have an EGD last year which showed gastritis, was started on omeprazole. He is no longer taking this medication as he felt it did not help. He also tested positive for hepatitis C last year and has not followed up for treatment of this. Reports he has had some exertional dyspnea as well. Denies fever, chest pain, vomiting, dysuria, diarrhea, or melena. Related Data Home Medications Medication Instructions Recorded Confirmed naltrexone microspheres 380 mg 380 mg IM ONCE 03/13/21 03/21/22 intramuscular suspension,extended release (Vivitrol) Allergies Allergy/AdvReac Type Severity Reaction Status Date / Time No Known Allergies Allergy Unknown Verified 03/21/22 11:55 Review of Systems Review of Systems: CONSTITUTIONAL: Denies fever CARDIOVASCULAR: Denies chest pain RESPIRATORY: Reports dyspnea. GASTROINTESTINAL: Reports abdominal pain, nausea. Denies vomiting, or diarrhea. GENITOURINARY: Denies dysuria All systems reviewed & are unremarkable except as noted in HPI and below PMFSH Past Medical History Medical History Anemia Anxiety Depression Epigastric pain Gastric ulcer Hepatitis C History of heroin abuse Melena Pneumonia Previous known suicide attempt SVT (supraventricular tachycardia) Surgical History Surgical History History of cardiac radiofrequency ablation Social History Social History (Updated 04/12/22 @ 09:23 by Marlin Corbett PA-C) Smoking status: Current every day smoker Alcohol intake: former Substance use: former Substance use type: marijuana, heroin and amphetamines Living arrangements: with family Gender identity (if verbalized by the patient): Male Spiritual care concerns: No Exam Narrative: GENERAL: Well-appearing, well-nourished, and in no acute distress. HEAD: Normocephalic, atraumatic. EYES: EOMI. ENT: Nares clear, no rhinorrhea or epistaxis. Mucous membranes moist. Oropharynx without tonsillar hypertrophy exudate or other lesions. CHEST: Clear to auscultation. No respiratory distress. No wheezes rales or rhonchi HEART: Regular rate and rhythm. No murmur heard. Normal peripheral pulses. ABDOMEN: Soft, nontender, nondistended, normal active bowel sounds. EXTREMITIES: Normal range of motion. No edema. SKIN: Warm, dry, no rash. NEURO: No focal deficits. Alert and oriented x3. PSYCH: Normal mood and affect Course Course Emergency Course: Patient updated on workup and agrees with plan of care Vital Signs Vital signs: Vital Signs Temperature 98.6 F 04/12/22 08:23 Pulse Rate 108 H 04/12/22 08:23 Respiratory Rate 16 04/12/22 08:23 Blood Pressure 160/86 H 04/12/22 08:23 Pulse Oximetry 100 04/12/22 08:23 Oxygen Delivery Room Air 04/12/22 08:23 Temperature 98.6 F 04/12/22 08:23 Pulse Rate 102 H 04/12/22 09:30 Respiratory Rate 17 04/12/22 09:30 Blood Pressure 153/90 H 04/12/22 09:30 Pulse Oximetry 99 04/12/22 09:30 Oxygen Delivery Room Air 04/12/22 08:23 MDM - Abdominal Pain MDM Narrative Medical decision making narrative: Patient presents to the emergency department for epigastric abdominal discomfort and nausea ongoing over the last month. Patient had a EGD last year which showed gastritis and was started on a PPI. Also was found to be hepatitis C positive a year ago. Reports he has not been taking his PPI and never pursued treatment for hepatitis C. H
[2022-04-12 09:25] LABS: Basophils Absolute Auto 0.1 K/mm3 (0.0-0.1); Basophils Percent Auto 1.1 % (0.2-1.2); Eosinophils Percent Auto 0.5 % (0-4.4); Hematocrit 47.5 % (42.0-52.0); Hemoglobin 15.4 g/dL (14.0-18.0); Immature Granulocyte Absolute 0.02 K/mm3 (0.00-0.031); Immature Granulocyte Percent A 0.3 % (0-0.5); Lymphocytes Absolute Auto 2.75 K/mm3 (0.9-3.2); Lymphocytes Percent Auto 44.8 % (18.3-44.2); Mean Corpuscular HGB Conc 32.4 g/dl (32-36); Mean Corpuscular Volume 77.1 fl (80-100); Mean Platelet Volume 10.1 fl (7.4-10.4); Monocytes Absolute Auto 0.9 K/mm3 (0.1-0.6); Monocytes Percent Auto 14.3 % (2.6-8.5); Neutrophils Absolute Auto 2.4 K/mm3 (1.3-6.7); Platelet Count Result 191 k/mm3 (150-375); Red Blood Count 6.16 M/mm3 (4.6-6.20); Red Cell Distribution Width 16.1 % (11.5-14.5); White Blood Count 6.1 K/mm3 (4.5-10.0)
[2022-04-12] MEDS: PANTOPRAZOLE SODIUM IV 40 MG VIAL IV PUSH (09:27)
[2022-04-12 09:30] VITALS: BP 153/90; PULSE 102; RESP 17; O2SAT 99
[2022-04-12 09:37] LABS: Alanine Aminotransferase 136 U/L (6-50); Albumin Level 4.8 g/dL (3.5-5.1); Alkaline Phosphatase 68 U/L (38-126); Anion Gap 6 mmol/L (8-16); Aspartate Amino Transferase 72 U/L (17-59); Bilirubin,Total 0.9 mg/dL (0.2-1.3); Blood Urea Nitrogen 13 mg/dL (9-20); Calcium 8.7 mg/dL (8.4-10.2); Carbon Dioxide 27 mmol/L (22-30); Chloride 105 mmol/L (98-107); Estimated CRCL calculation 130 ml/min; Estimated Glomerular Filt Rate > 60; Glucose 109 mg/dL (65-110); Lipase 150 U/L (23-300); Potassium 3.7 mmol/L (3.4-5.0); Sodium 138 mmol/L (137-145)
[2022-04-12 09:47] LABS: Anisocytosis 1+ (NORMAL); Atypical Lymphocytes Present; Ovalocytes 1+ (NORMAL); Platelet Estimate Adequate (Adequate); Schistocytes None Seen (NORMAL)
[2022-04-12 09:48] LABS: NT Pro B Type Natriuretic Pept < 20 pg/mL (19.9-100); Troponin I < 0.012 ng/mL (0.000-0.034)
[2022-04-12 09:50] LABS: Prothrombin Time 12.7 Seconds (11.1-14.7)
[2022-04-12 09:51] LABS: Partial Thromboplastin Time 28.1 SECONDS (22.3-36.8)
[2022-04-12 09:54] LABS: D Dimer 0.57 ug/mL (<0.48)
[2022-04-12] MEDS: ONDANSETRON INJ 4 MG/2 ML VIAL IV PUSH (11:32)
[2022-04-12 11:49] VITALS: BP 144/88; PULSE 81; RESP 15; O2SAT 100
== END 2022-04-12 11:55 | disposition home or self-care (01) ==
PROVIDERS: Emergency Medicine; Emergency Provider Physician Assistant; PCP Internal Medicine
DX: R10.13 Epigastric pain (principal); B19.20 Unspecified viral hepatitis C without hepatic coma; Z86.2 Personal history of diseases of the blood and blood-forming organs and certain disorders involving the immune mechanism; Z87.01 Personal history of pneumonia (recurrent); R94.31 Abnormal electrocardiogram [ECG] [EKG]; K44.9 Diaphragmatic hernia without obstruction or gangrene; K42.9 Umbilical hernia without obstruction or gangrene
CPT/HCPCS: 36415; 71046; 71275; 74177; 80053; 81001; 83690; 83880; 84484; 85025; 85380; 85610; 85730; 93005; 96374; 96375; 99284; C9113; J2405; Q9967

== ENCOUNTER 2022-06-13 08:54 | Outpatient (CLI) | payer OTHER, SELFPAY ==
[2022-06-13 09:38] LABS: Hematocrit 45.5 % (42.0-52.0); Hemoglobin 14.4 g/dL (14.0-18.0); Mean Corpuscular HGB Conc 31.6 g/dl (32-36); Mean Corpuscular Hemoglobin 25.1 pg (26-34); Mean Corpuscular Volume 79.4 fl (80-100); Mean Platelet Volume 9.7 fl (7.4-10.4); Platelet Count Result 246 k/mm3 (150-375); Red Blood Count 5.73 M/mm3 (4.6-6.20); Red Cell Distribution Width 17.6 % (11.5-14.5); White Blood Count 5.7 K/mm3 (4.5-10.0)
[2022-06-13 09:48] LABS: Alanine Aminotransferase 110 U/L (6-50); Alkaline Phosphatase 49 U/L (38-126); Anion Gap 9 mmol/L (8-16); Aspartate Amino Transferase 74 U/L (17-59); Bilirubin,Total 0.8 mg/dL (0.2-1.3); Blood Urea Nitrogen 15 mg/dL (9-20); Calcium 9.1 mg/dL (8.4-10.2); Carbon Dioxide 25 mmol/L (22-30); Chloride 106 mmol/L (98-107); Estimated Glomerular Filt Rate > 60; Glucose 96 mg/dL (65-110); Potassium 4.2 mmol/L (3.4-5.0); Sodium 140 mmol/L (137-145)
[2022-06-13 10:28] LABS: HIV 1/2 Ab P24 Ag Result Negative (Negative)
[2022-06-17 15:50] LABS: Testosterone Free 123.6 pg/mL (35.0-155.0); Testosterone Total 1248 ng/dL (250-1100)
== END 2022-06-13 08:55 | disposition home or self-care (01) ==
PROVIDERS: PCP Internal Medicine; Visit Provider Nurse Practitioner
DX: R53.83 Other fatigue (principal); B19.20 Unspecified viral hepatitis C without hepatic coma; Z79.899 Other long term (current) drug therapy
CPT/HCPCS: 36415; 80053; 84402; 84403; 85027; 86703; G0432

== ENCOUNTER 2023-01-05 13:56 | Outpatient (CLI) | payer OTHER, SELFPAY ==
[2023-01-07 20:43] LABS: Hepatitis C Viral RNA PCR <15 IU/mL
== END 2023-01-05 13:57 | disposition home or self-care (01) ==
LOC: ANHLAB 13:57
PROVIDERS: PCP Internal Medicine; Visit Provider Nurse Practitioner
DX: B19.20 Unspecified viral hepatitis C without hepatic coma (principal)
CPT/HCPCS: 36415; 87522; 87902

== ENCOUNTER 2023-01-10 12:22 | Outpatient (CLI) | payer OTHER, SELFPAY ==
[2023-01-10 13:35] LABS: Alanine Aminotransferase 21 U/L (6-50); Albumin Level 4.8 g/dL (3.5-5.1); Alkaline Phosphatase 46 U/L (38-126); Aspartate Amino Transferase 28 U/L (17-59); Bilirubin,Total 0.7 mg/dL (0.2-1.3)
== END 2023-01-10 12:23 | disposition home or self-care (01) ==
LOC: ANHLAB 12:23
PROVIDERS: PCP Internal Medicine; Visit Provider Nurse Practitioner
DX: B18.2 Chronic viral hepatitis C (principal)
CPT/HCPCS: 36415; 80076

== ENCOUNTER 2023-03-06 15:29 | Emergency (ER) | payer OTHER, SELFPAY ==
--- NOTE | 2023-03-06 15:38 | ECG_ITS ---
Measurements Intervals [place] Rate: 117 P: 48 MA: 130 QRS: 15 QRSD: 96 T: 51 QT: 347 QTc: 486 Interpretive Statements SINUS TACHYCARDIA ATRIAL PREMATURE COMPLEXES LEFT VENTRICULAR HYPERTROPHY WITH ST-T CHANGE NONSPECIFIC ST-T WAVE ABNORMALITY- ANTEROLAT/INF LEADS BASELINE ARTIFACT- I, II, III, AVR, AVL ABNORMAL ECG COMPARED TO ECG 04/12/2022 09:25:10 SINUS TACHYCARDIA NOW PRESENT Electronically Signed On 03-06-2023 17:05:31 WIRE RIGGER by [place] D.O.
[2023-03-06 15:39] VITALS: BP 159/94; PULSE 128; RESP 18; TEMP 37; O2SAT 100
== END 2023-03-06 15:40 | disposition left against medical advice (07) ==
PROVIDERS: Emergency Provider Emergency Medicine; PCP Internal Medicine
DX: R00.2 Palpitations (principal)
CPT/HCPCS: 93005; 99199